=== PATIENT | female | born 1980 | race Caucasian/White ===

== ENCOUNTER 2019-02-25 19:27 | Emergency (ER) | payer OTHER ==
[2019-02-25 19:43] VITALS: BP 111/69
[2019-02-25] MEDS ORDERED: Albuterol HFA INHALER* 8 gm MDI INH ONE (20:00)
--- NOTE | 2019-02-25 20:17 | UC ---
Respiratory Complaint HPI - HPI Summary HPI Summary: PATIENT ARRIVED TO [facility] YESTERDAY FROM [place] TO VISIT FAMILY FOR THE HOLIDAYS. FORGOT HER ALBUTEROL INHALER AT HOME AND HAS BEEN EXPERIENCING AN INCREASE IN COUGH AND WHEEZE SINCE BEING AT HER BROTHER'S HOUSE. HE HAS A DOG AND A WOOD STOVE SHE THINKS SHE MAY BE REACTING TO THIS. SHE DENIES ANY FEVER , ST, EAR PAIN. NO SHORTNESS OF BREATH OR NAUSEA/VOMITING. SX IMPROVE WHEN SHE IS OUT OF THE HOUSE. - History of Current Complaint Chief Complaint: UCRespiratory Stated Complaint: ASTHMA Time Seen by Provider: 02/25/19 19:46 Hx Obtained From: Patient Hx Last Menstrual Period: 02/02/19 Onset/Duration: Gradual Onset, Lasting Days - 1 DAY, Still Present Severity Initially: Moderate Severity Currently: Mild Pain Intensity: 0 Pain Scale Used: 0-10 Numeric Character: Cough: Nonproductive Associated Signs And Symptoms: Positive: Wheezing. Negative: Dyspnea, Fever, Chills, Pleuritic Chest Pain, URI, Nasal Congestion - Allergies/Home Medications Allergies/Adverse Reactions: Allergies Allergy/AdvReac Type Severity Reaction Status Date / Time No Known Allergies Allergy Verified 02/25/19 19:45 PMH/Surg Hx/FS Hx/Imm Hx Respiratory History: Asthma - Surgical History Surgical History: None - Family History Known Family History: Positive: Non-Contributory - Social History Alcohol Use: None Substance Use Type: None Smoking Status (MU): Never Smoked Tobacco Review of Systems All Other Systems Reviewed And Are Negative: Yes Constitutional: Positive: Negative Respiratory: Positive: Cough, Other - WHEEZE Cardiovascular: Positive: Negative Gastrointestinal: Positive: Negative Physical Exam Triage Information Reviewed: Yes Appearance: Well-Appearing, No Pain Distress, Well-Nourished Vital Signs: Initial Vital Signs Temp 97.3 F 02/25/19 19:38 Pulse 75 02/25/19 19:38 Resp 18 02/25/19 19:38 BP 111/69 02/25/19 19:38 Pulse Ox 99 02/25/19 19:38 Vital Signs Reviewed: Yes Eyes: Positive: Conjunctiva Clear ENT: Positive: Hearing grossly normal, Pharynx normal, TMs normal Neck: Positive: Supple, Nontender, No Lymphadenopathy Respiratory: Positive: No respiratory distress, No accessory muscle use, Wheezing - MILD INTERMITTENT WHEEZE LEFT SIDE. Negative: Decreased breath sounds Cardiovascular Exam: Normal Abdomen Description: Positive: Soft Musculoskeletal: Positive: No Edema Neurological: Positive: Alert Psychological: Positive: Age Appropriate Behavior Skin: Negative: Rashes Respiratory Course/Dx - Course Course Of Treatment: WILL COVER FOR MILD ASTHMA EXACERBATION WITH SHORT COURSE OF PREDNISONE. ALBUTEROL INHALER REFILLED. RECOMMEND AN OTC ANTIHISTAMINE TO COVER FOR ANY ALLERGIC COMPONENT. FOLLOW-UP IF SYMPTOMS ARE NOT IMPROVING WITH THIS TREATMENT. - Differential Dx/Diagnosis Provider Diagnosis: Asthma exacerbation Discharge ED - Sign-Out/Discharge Documenting (check all that apply): Patient Departure All imaging exams completed and their final reports reviewed: No Studies - Discharge Plan Condition: Stable Disposition: HOME Prescriptions: Albuterol HFA INHALER* [Ventolin HFA Inhaler*] 2 puff INH Q4H PRN #1 mdi PRN Reason: Shortness Of Breath predniSONE TAB* [Deltasone 20 MG TAB*] 40 mg PO DAILY #10 tab Patient Education Materials: Asthma (ED) Referrals: No Primary Care Phys,NOPCP [Primary Care Provider] - Additional Instructions: YOU ARE LIKELY EXPERIENCING A MILD ASTHMA EXACERBATION. PRESCRIPTION FOR ALBUTEROL INHALER AND PREDNISONE SENT TO [facility] IN [place]. YOU MAY CONSIDER TAKING AN [id number] ANTIHISTAMINE SUCH CLARITIN OR ZYRTEC WELL TO COVER FOR ANY POSSIBLE ALLERGIC COMPONENT. SEEK REEVALUATION IF YOUR SYMPTOMS DO NOT IMPROVE WITH THIS TREATMENT. - Billing Disposition and Condition Condition: STABLE Disposition: Home
== END 2019-02-25 20:17 | disposition home or self-care (01) ==
LOC: UCEAST 19:27
DX: J45.901 Unspecified asthma with (acute) exacerbation (principal)
CPT/HCPCS: 99202; A9270-GY; G0463; J7512